=== PATIENT | female | born 1985 | race Two or more races ===

== ENCOUNTER 2023-01-03 23:25 | Emergency (ER) | payer OTHER ==
[~2023-01-03] VITALS: Ht 172.7 cm; Wt 90.0 kg
[2023-01-04] MEDS ORDERED: INSULIN LANTUS (GLARGINE) 1 /0.01ml (100units/ml) SC SCH (01:30)
[2023-01-04 01:37] VITALS: BP 120/76; PULSE 90; RESP 16; TEMP 97.9; O2SAT 99
== END 2023-01-04 01:42 | disposition home or self-care (01) ==
LOC: ER 23:25
DX: E10.9 Type 1 diabetes mellitus without complications (principal); Z76.0 Encounter for issue of repeat prescription
CPT/HCPCS: J1815

== ENCOUNTER 2023-01-25 02:36 | Emergency (ER) | payer OTHER ==
[~2023-01-25] VITALS: Ht 172.7 cm; Wt 90.0 kg
[2023-01-25 03:02] VITALS: BP 138/100; PULSE 107; RESP 19; TEMP 98; O2SAT 99
[2023-01-25] MEDS ORDERED: ZOFR4T PO (03:14)
[2023-01-25] MEDS ORDERED: HYDR-4902 PO (03:14)
[2023-01-25] MEDS ORDERED: KETOROLAC TROMETH 30 MG/ML 1ML VIAL IM ONE (03:15)
== END 2023-01-25 03:28 | disposition home or self-care (01) ==
LOC: ER 02:36
DX: K14.6 Glossodynia (principal); E11.9 Type 2 diabetes mellitus without complications; Z79.1 Long term (current) use of non-steroidal anti-inflammatories (NSAID); Z79.899 Other long term (current) drug therapy
CPT/HCPCS: 96372; 99283; J1885

== ENCOUNTER 2023-04-09 02:49 | Emergency (ER) | payer OTHER, MEDICAID ==
[~2023-04-09] VITALS: Ht 172.7 cm; Wt 82.0 kg
[~2023-04-09 02:49] MED LIST: HYDR-4902 PO; MAGIC MT; NAPR-746 PO; ZOFR4T PO
[2023-04-09 02:57] VITALS: BP 137/100; PULSE 108; RESP 16; TEMP 97.8
[2023-04-09] MEDS ORDERED: LIDOCAINE VISCOUS 2% 15ML UD PO ONE ×2 (03:45→05:00)
[2023-04-09] MEDS ORDERED: KETOROLAC TROMETH 30 MG/ML 1ML VIAL IV ONE (04:00)
[2023-04-09] MEDS ORDERED: KETOROLAC TROMETH 60MG/2ML VIAL IM ONE ×2 (04:30)
[2023-04-09 05:10] VITALS: O2SAT 100
== END 2023-04-09 05:20 | disposition home or self-care (01) ==
LOC: ER 02:51
DX: K14.6 Glossodynia (principal); F41.9 Anxiety disorder, unspecified; E11.9 Type 2 diabetes mellitus without complications; Z90.710 Acquired absence of both cervix and uterus; Z79.899 Other long term (current) drug therapy
CPT/HCPCS: J1885